=== PATIENT | male | born 1995 | race African-American/Black ===

== ENCOUNTER 2017-02-13 17:55 | Emergency (ER) | payer SELFPAY ==
[2017-02-13 19:00] VITALS: BP 135/60
[2017-02-13] MEDS ORDERED: NAPROXEN 500 MG TABLET PO STA (19:04)
[2017-02-13] MEDS ORDERED: CYCLOBENZAPRINE 10 MG TABLET. PO ONE (19:15)
[2017-02-13] MEDS ORDERED: NAPR500T3 PO (19:40)
--- NOTE | 2017-02-13 19:40 | PHYS DOC ---
Past Medical History Past Medical History: No Pertinent History Past Surgical History: No Surgical History Alcohol Use: None Drug Use: Marijuana Adult General Chief Complaint Chief Complaint: SHOULDER INJURY HPI HPI Patient is a 21 year old male with no medical history presents with left shoulder pain that began today while playing as normal. Patient states he believes he sprained his shoulder. Review of Systems Review of Systems Constitutional: Denies fever or chills [] Eyes: Denies change in visual acuity, redness, or eye pain [] Musculoskeletal: Left shoulder pain Integument: Denies rash or skin lesions [] Neurologic: Denies headache, focal weakness or sensory changes [] Endocrine: Denies polyuria or polydipsia [] Current Medications Current Medications Current Medications Medications (Trade) Dose Ordered Sig/Anraud Start Time Stop Time Status Last Admin Dose Admin Cyclobenzaprine HCl (Flexeril) 10 mg 1X ONCE 02/13/17 19:15 02/13/17 19:22 DC Naproxen (Naprosyn) 500 mg 1X STAT 02/13/17 19:04 02/13/17 19:22 DC Allergies Allergies Allergies Coded Allergies Type Severity Reaction Last Updated Verified No Known Drug Allergies 02/13/17 No Physical Exam Physical Exam Constitutional: Well developed, well nourished, no acute distress, non-toxic appearance. [] HENT: Normocephalic, atraumatic, bilateral external ears normal, oropharynx moist, no oral exudates, nose normal. [] Skin: Warm, dry, no erythema, no rash. [] Back: No tenderness, no CVA tenderness. [] Extremities: Left shoulder with no obvious deformity, tenderness on palpation of the left scapula. Full range of motion to the left shoulder. Adequate abduction and adduction of the left shoulder. Adequate plantar flexion and dorsiflexion of the left forearm. +2 left radial pulse. Cap refill less than 2 seconds left upper extremity. Adequate radial medial and ulnar sensation to the left upper extremity. Neurologic: Alert and oriented X 3, normal motor function, normal sensory function, no focal deficits noted. [] Psychologic: Affect normal, judgement normal, mood normal. [] Current Patient Data Vital Signs Vital Signs Date Time Temp Pulse Resp B/P (MAP) Pulse Ox O2 Delivery O2 Flow Rate FiO2 02/13/17 19:00 98.2 77 16 99 Room Air 98.2 EKG EKG [] Radiology/Procedures Radiology/Procedures [] Course & Med Decision Making Course & Med Decision Making Pertinent Labs and Imaging studies reviewed. (See chart for details) Patient is in the ED with complaints of left shoulder pain during baseball. Left shoulder x-rays interpreted by Dr. Ramos are negative for any acute findings. Patient has a possible left shoulder sprain. Ice elevation encouraged. Follow-up with orthopedic doctor in one week. Naproxen Rx provided for pain. Dragon Disclaimer Dragon Disclaimer This electronic medical record was generated, in whole or in part, using a voice recognition dictation system. Departure Departure Impression: Primary Impression: Sprain of left shoulder Disposition: HOME, SELF-CARE Condition: STABLE Referrals: JOSE MOY II, MD Follow-up in one week if pain continues Patient Instructions: Shoulder Sprain Additional Instructions: You were seen for left shoulder sprain. Please follow-up with your own orthopedic doctor or the provided orthopedic doctor in one week if pain continues. Ice and elevate the extremity. Take the prescribed medicines as needed. Scripts Naproxen (NAPROXEN) 500 Mg Tablet 1 TAB PO BID, #60 TAB 1 Refill Prov: MAX WHITTAKER APRN 02/13/17 Problem Qualifiers Primary Impression: Sprain of left shoulder Encounter type: initial encounter Shoulder sprain type: unspecified sprain Qualified Codes: S43.402A - Unspecified sprain of left shoulder joint, initial encounter MAX WHITTAKER [employer] February 13, 2017 19:40
--- NOTE | 2017-02-14 08:35 | RAD ---
Indication: Pain after injury today. Technique: 3 views of the left shoulder are submitted for review. No comparison is available. Findings: There is no fracture or dislocation. There is no osseous lesion. Impression: Negative for fracture.
== END 2017-02-13 19:55 | disposition home or self-care (01) ==
LOC: ER 19:53
DX: S43.402A Unspecified sprain of left shoulder joint, initial encounter (principal); F12.10 Cannabis abuse, uncomplicated; X58.XXXA Exposure to other specified factors, initial encounter; Y93.89 Activity, other specified; Y99.8 Other external cause status; Y92.89 Other specified places as the place of occurrence of the external cause
CPT/HCPCS: 73030; 99284